=== PATIENT | female | born 1950 | race Caucasian/White ===

== ENCOUNTER → 2016-11-26 | Outpatient (CLI) | payer OTHER ==
[~2016-11-26] MED LIST: AVALIDE 300-121 EACH PO; CALCIUM; CO Q-1010 MG PO; EVISTA; GLUCOPHAGE500 MG PO; LIPITOR20 MG PO; OMEGA-3 FISH O1 EAC3 PO
== END ==
LOC: RAD 11:41
DX: Z12.31 Encounter for screening mammogram for malignant neoplasm of breast (principal)

== ENCOUNTER → 2018-01-27 | Outpatient (CLI) | payer OTHER | LOC: RAD 14:15 | DX: Z12.31 Encounter for screening mammogram for malignant neoplasm of breast (principal); I10 Essential (primary) hypertension; E11.9 Type 2 diabetes mellitus without complications ==

== ENCOUNTER → 2019-02-09 | Outpatient (CLI) | payer OTHER | LOC: RAD 10:34 | DX: Z12.31 Encounter for screening mammogram for malignant neoplasm of breast (principal) ==

== ENCOUNTER → 2020-02-27 | Outpatient (CLI) | payer OTHER | LOC: BC 07:55 | PROVIDERS: ATTEND Family Medicine | DX: Z12.31 Encounter for screening mammogram for malignant neoplasm of breast (principal) ==

== ENCOUNTER → 2021-03-10 | Outpatient (CLI) | payer OTHER | LOC: BC 13:00 | PROVIDERS: ATTEND Family Medicine | DX: Z12.31 Encounter for screening mammogram for malignant neoplasm of breast (principal); N64.89 Other specified disorders of breast ==